=== PATIENT | female | born 1945 | race Caucasian/White ===

== ENCOUNTER 2024-11-04 08:44 | Outpatient (CLI) | payer MEDICARE, BC, SELFPAY ==
[2024-11-04 08:52] VITALS: BP 136/66; PULSE 55; RESP 20; TEMP 36.7; O2SAT 98
[2024-11-04 09:24] VITALS: PULSE 64; O2SAT 100
[2024-11-04] MEDS: methylPREDNISolone ACETATE 40 MG/ML VIAL IJ (09:29)
--- NOTE | 2024-11-04 09:33 | PDOC.PAIN_ITS ---
Date of service: 11/04/24 Time of Service: 09:33 US Guided Injections Type of Ultrasound Guided Injection: Right Trochanteric Bursa Injection Pre-Procedural Evaluation Tenderness to palpation over the right trochanteric bursa Referral Patient has been referred to the [facility] for Right Trochanteric Bursa Injection for a chief complaint of Pain over the right lateral hip Pre-Procedural Pain Score Pre-procedural pain score: 8/10 Reason for Exam Pain over the right lateral hip Patient Interview Patient was interviewed and medical record reviewed: Yes There were no contraindications to performing an US guided procedure. Risks,expected side effects, potential benefits were reviewed. The patient consent form was signed and witnessed. Standard time out procedure was performed. Patient Safety No skin issues over the proposed injection site Procedure Description No sedation given for procedure Patient was placed in the prone position and the following Pulse Ox applied. Pre-Procedure ultrasound scanning performed using a Linear 9 MHz probe Site Preparation Chloroprep Local Anesthesia of Lidocaine 2%. A 21 G 3.5 Pajunk ultrasound needle was placed under live US guidance using an in-plane approach to the target area. After visualization of the needle tip at the target area Bupivacaine 0.5% and Depo-Medrol 40mg per cc were used. Total of Injectate/Medication Note: 5 cc of Bupivacaine and 1 cc of Depomedrol Negative aspiration for blood. [place] were removed without difficulty. Ultrasound images were captured and stored. Patient Mental Status Patient was alert and awake during procedure Vital Signs Vital signs were stable throughout the procedure and recorded by nursing. Follow Up/Discharge Follow up plans and appointments were discussed with patient. Post procedure instruction was given as documented in nursing documentation. Discharge criteria met and patient discharged from [facility]: Yes Post Procedure Pain Post Procedure Pain: 5/10 Patient tolerated procedure well Procedure Outcome: Successful Non US Guided Injections Procedure Description Patient was placed in the prone position Post Procedure Pain Post Procedure Pain: 5/10 Coding Conscious Sedation used for procedure: No CPT Codes: Inj,Bursa/Tendon Major (not SI); Ischial Bursa - (2529000 ~G) Additional Codes: Date of Service (43492) Date of service: 11/04/24 Visualization of the needle tip - Ultrasound images captured/stored: Yes ([id number])
[2024-11-04] MEDS: Nerve Block Tray 1 EACH MC (09:34)
[2024-11-04] MEDS: Bupivacaine 0.5% Pres-Free 10 ML VIAL IJ (09:34)
== END 2024-11-04 08:45 | disposition home or self-care (01) ==
LOC: PC 08:45
PROVIDERS: PCP Family Medicine; Visit Provider Preventive Medicine Occupational Medicine
DX: M25.551 Pain in right hip (principal)
CPT/HCPCS: 20610; 20611; 76942; J0665; J1010

== ENCOUNTER 2024-12-04 14:01 | Emergency (ER) | payer MEDICARE, BC, SELFPAY ==
[2024-12-04 14:06] VITALS: BP 126/71; PULSE 58; RESP 16; TEMP 36.6; O2SAT 98
--- NOTE | 2024-12-04 14:08 | W.ED.GENAD ---
Discharge Plan Disposition Patient Disposition: Home Discharge Details Clinical Impression: Tick bite of left upper arm Primary Care Provider: Nanci Miller ED Provider: Jake Bowling [place] Meds and New Rx's Prescriptions: New cephalexin 500 mg capsule 500 mg PO QID 5 Days Qty: 20 0RF cetirizine 10 mg tablet 10 mg PO DAILY PRNQty: 7 0RF ondansetron 4 mg tablet,disintegrating 4 mg PO BID 5 Days Qty: 10 0RF Continued cholecalciferol (vitamin D3) 25 mcg (1,000 unit) capsule 25 mcg PO DAILY alendronate 70 mg tablet 70 mg PO QWEEK cranberry-vitamin C-flaxseed Capsule 1 cap PO 2XD pantoprazole 40 mg tablet,delayed release (DR/EC) 40 mg PO DAILY clopidogrel [Plavix] 75 mg tablet 75 mg PO DAILY atorvastatin 20 mg tablet 20 mg PO DAILY magnesium 250 mg tablet 250 mg PO DAILY celecoxib [Celebrex] 200 mg capsule 200 mg PO BID tramadol 50 mg tablet 50 mg PO BID PRN Discharge Instructions Additional Instructions: You are seen in the emergency department for your tick bite. As we discussed you have a local site reaction. Please take this allergy medication called cetirizine. At the moment there does not appear to be signs of a skin infection. As we discussed if you develop any increased pain swelling redness or any increased itching please begin taking these antibiotics as directed. Please return to the emergency department if you develop any worsening symptoms any foul-smelling drainage from any fevers or any bull's-eye rash. Otherwise please follow-up with primary care provider as needed next week. Discharge Data Discharge Date/Time-TO BE ENTERED AT DEPARTURE: 12/04/24 15:00 HPI General Date/Time Provider Initiated Documentation: 12/04/24 14:08. HPI Narrative: MDM This is an overall very well-appearing afebrile and not tachycardic 79-year-old female with left proximal posterior arm tick bite but no signs of erythema migrans nor cellulitis for which patient will be discharged with empiric trial of expectant outpatient management with prescription for [id number] cephalexin in the event the patient develops cellulitis. No fluctuance to suggest abscess. No signs of erythema migrans to suggest Lyme disease so no indication for doxycycline. No pain out of proportion to suggest necrotizing soft tissue infection. No palpable cords to suggest increased risk for DVT. No recent PICC lines nor IV drug use making my suspicion low risk for upper extremity DVT. Patient was concerned that she she could have a skin infection. The area does not appear cellulitic at the moment but I advised her that if she developed any increased itching any increased pain or swelling that she should take these antibiotics as directed. We also discussed that if she develops a red bull's-eye rash lower could not move her hand that she should return to the emergency department. Her left hand was warm well-perfused so I was not concerned for critical limb ischemia so I did not feel that she required a CT angiogram. We discussed using ice as needed under a dry towel for any discomfort. Patient was discharged with empiric trial of expectant outpatient management. HPI The patient presents for a tick bite. Three days ago, she removed a tick from the back of her left arm using a tick tool. The removal was challenging, but she managed to extract it completely. She reports no presence of a bull's-eye rash. She is uncertain about the duration of the tick's attachment as she had showered a few hours prior to its discovery. Today, she notes that the area appears more inflamed than before and is causing significant itching. She has been using alcohol wipes to alleviate the itching. Exam General: Well-appearing in no acute distress speaking in complete sentences. Head: Normocephalic, atraumatic. Eye: Extraocular eye movements intact. No conjunctival injection. No scleral icterus. Ear, nose, mouth, throat: Grossly normal inspection. Normal voice, handling secretions normally. Neck: Trachea midline. Cardiovascular: Well-perfused distal extremities. Respiratory: Nonlabored respiration. Gastrointestinal: Nondistended abdomen. Musculoskeletal: On the posterior aspect of the patient's left upper arm there is a mildly tender approximately 2 cm erythematous but not warm or fluctuant area with central bite consistent with history of recent tick bite. No palpable cords. Left hand warm well-perfused. No signs of erythema migrans. Skin: Normal for age and race, grossly normal temperature and turgor. No acute rash. Neurologic: Alert and appropriate, no apparent acute deficits. Psychiatric: Mood and manner are appropriate. Grooming and personal hygiene are appropriate. Related Data Home Medications ?Medication ?Instructions ?Recorded ?Confirmed alendronate 70 mg tablet 70 mg PO QWEEK 10/20/24 12/04/24 cholecalciferol (vitamin D3) 25 25 mcg PO DAILY 10/20/24 12/04/24 mcg (1,000 unit) capsule cranberry-vitamin C-flaxseed 1 cap PO 2XD 10/20/24 12/04/24 capsule atorvastatin 20 mg tablet 20 mg PO DAILY 10/26/24 12/04/24 clopidogrel 75 mg tablet (Plavix) 75 mg PO DAILY 10/26/24 12/04/24 magnesium 250 mg tablet 250 mg PO DAILY 10/26/24 12/04/24 pantoprazole 40 mg tablet,delayed 40 mg PO DAILY 10/26/24 12/04/24 release celecoxib 200 mg capsule (Celebrex) 200 mg PO BID 11/04/24 12/04/24 tramadol 50 mg tablet 50 mg PO BID PRN 11/04/24 12/04/24 cephalexin 500 mg capsule 500 mg PO QID 5 days #20 caps 12/04/24 cetirizine 10 mg tablet 10 mg PO DAILY PRN #7 tabs 12/04/24 ondansetron 4 mg disintegrating 4 mg PO BID 5 days #10 tabs 12/04/24 tablet Previous Rx's ?Medication ?Instructions ?Recorded cephalexin 500 mg capsule 500 mg PO QID 5 days #20 caps 12/04/24 cetirizine 10 mg tablet 10 mg PO DAILY PRN #7 tabs 12/04/24 ondansetron 4 mg disintegrating 4 mg PO BID 5 days #10 tabs 12/04/24 tablet Allergies Allergy/AdvReac Type Severity Reaction Status Date / Time menaquinone-7 (vitamin K2) Allergy Unknown Other (See Unverified 12/04/24 14:09 Comment) metronidazole Allergy Unknown Other (See Unverified 12/04/24 14:09 Comment) phytonadione (vitamin K1) Allergy Unknown Anaphylaxis Unverified 12/04/24 14:09 PFSH All Active Problems (Updated 12/04/24 @ 14:39 by Jake Bowling MD) Tick bite of left upper arm (Acute) Trochanteric bursitis, right hip (Acute) Medical History Stroke Lesion of right lower eyelid 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 Unspecified disorder of eyelid Hordeolum externum left lower eyelid Chalazion right upper eyelid Trichiasis without entropion right upper eyelid Other specified soft tissue disorders Pain in left lower leg Unilateral primary osteoarthritis, left knee Encounter to establish care Chronic venous insufficiency Pain in left knee Synovial cyst of popliteal space [Mullen], left knee Social History (Updated 11/04/24 @ 08:51 by Sofía Reddy RN) Smoking/Tobacco Use Status: Never Smoking risk assessment performed?: Yes Alcohol Intake: never Drug use: Never Substance use type: does not use Do you feel safe at home: Yes Do you feel safe in your relationship?: Yes
[2024-12-04 14:57] VITALS: BP 131/78; PULSE 52; RESP 18; O2SAT 100
== END 2024-12-04 15:00 | disposition home or self-care (01) ==
PROVIDERS: Emergency Provider Emergency Medicine; PCP Family Medicine
DX: S40.862A Insect bite (nonvenomous) of left upper arm, initial encounter (principal); W57.XXXA Bitten or stung by nonvenomous insect and other nonvenomous arthropods, initial encounter
CPT/HCPCS: 99283 ×2

== ENCOUNTER 2025-01-04 02:45 | Outpatient (CLI) | payer MEDICARE, BC, SELFPAY ==
--- NOTE | 2025-01-04 | DI.MRI_ITS ---
Exam(s) MR LOWER JOINT RT WO EXAM: MR LOWER JOINT RT WO CLINICAL HISTORY: TROCHANTERIC BURSITIS, R HIP M70.61 TECHNIQUE: Multiplanar multisequence MRI of right hip was performed COMPARISON: CT CT LOWER EXTREMITY RT WO from 09/30/2024 FINDINGS: Bones: There is no evidence of a fracture or avascular necrosis. There is no significant joint effusion. There is a tear of the anterior and superior labrum. No bone marrow edema is seen. The SI joints and symphysis pubis are well maintained. Musculotendinous structures: Musculotendinous structures demonstrate no abnormality. Intrapelvic structures demonstrate no significant abnormality. Soft tissues: There is diverticulosis of the colon. IMPRESSION: 1. Tear of the anterior superior right labrum. 2. There is no significant evidence to suggest trochanteric bursitis. 3. No evidence of an occult fracture or avascular necrosis. DATA REPOSITORY:
== END 2025-01-04 03:05 ==
LOC: DI 02:45
PROVIDERS: PCP Family Medicine; Visit Provider Nurse Practitioner Family
DX: S43.431A Superior glenoid labrum lesion of right shoulder, initial encounter (principal); X58.XXXA Exposure to other specified factors, initial encounter
CPT/HCPCS: 73721

== ENCOUNTER 2025-01-26 15:55 | Outpatient (CLI) | payer MEDICARE, BC, SELFPAY ==
--- NOTE | 2025-01-26 14:15 | DI.RAD_ITS ---
Exam(s) XR HIP RT COMPLETE AP PELVIS EXAM: XR HIP RT COMPLETE AP PELVIS CLINICAL HISTORY: RIGHT HIP PAIN. TECHNIQUE: 2D digital imaging was performed. COMPARISON: No exams were available for comparison FINDINGS: Two views No evidence of pelvic nor hip fracture. Sacroiliac joints appear unremarkable. Bone density normal. No osseous lesions. There is mild narrowing of the hip joint spaces which appears symmetrical. No osteophytes evident. No osseous lesions. IMPRESSION: Mild joint space narrowing in both hips. DATA REPOSITORY: RADIATION DOSE DELIVERED:
== END 2025-01-26 15:56 | disposition home or self-care (01) ==
LOC: DIORS 15:55
PROVIDERS: PCP Family Medicine; Referring Provider Family Medicine; Visit Provider Student in an Organized Health Care Education/Training Program
DX: M70.61 Trochanteric bursitis, right hip (principal); S73.191A Other sprain of right hip, initial encounter; X58.XXXA Exposure to other specified factors, initial encounter
CPT/HCPCS: 99214; 73502

== ENCOUNTER 2025-02-08 08:17 | Outpatient (CLI) | payer MEDICARE, BC, SELFPAY ==
--- NOTE | 2025-02-08 05:45 | DI.RAD_ITS ---
Exam(s) RF JOINT INJ. FLUORO GUID RAD EXAM: RF JOINT INJ. FLUORO GUID RAD CLINICAL HISTORY: R HIP PAIN,fluoro guided injection,trochanteric bursitis rt hip, m70.61. TECHNIQUE: 2D and realtime digital imaging was performed. CONTRAST MATERIAL: Oral barium Oral water soluble contrast was administered. COMPARISON: No exams were available for comparison FINDINGS: This fluoroscopic guided right hip steroid injection was performed at the request of the referring orthopedic surgeon. As this patient has had prior trochanteric bursa injection in the ipsilateral hip, prior to starting this procedure we verified with the physician's office that indeed an actual intra- articular injection was desired.. The patient also showed me (on her cellphone) report of a recent hip MRI stating the presence of a labral tear. The patient was consented prior to this procedure. The patient was placed in the supine position on the fluoroscopy table. Using sterile technique and adequate stent-subcutaneous anesthesia, fluoroscopic guidance was used to advance a 22 gauge spinal needle into the right hip joint using an anterior approach being careful to avoid the common femoral artery. Intra-articular position was confirmed with 1.5 cc Omnipaque 300. Thereafter a sterile solution of 3 cc of bupivacaine 0.25 percent and 40 milligram Depo- Medrol was injected into the intra-articular compartment. The indwelling needle was then removed. A Band-Aid was applied. The patient tolerated this procedure well and there were no intraprocedural complications. IMPRESSION: Successful fluoroscopic guided right hip joint steroid injection. RADIATION DOSE DELIVERED: Ka,r=4.33mGy
[2025-02-08] MEDS: Lidocaine 1% Pres-Free 30 ML VIAL 15 ML IJ (10:15)
[2025-02-08] MEDS: methylPREDNISolone ACETATE 40 MG/ML VIAL IM (10:16)
[2025-02-08] MEDS: Omnipaque 300 MG/ML 10 ML BTL 5 ML IJ (10:17)
[2025-02-08] MEDS: Bupivacaine 0.25% Pres-Free 10 ML VIAL 5 ML IJ (10:18)
== END 2025-02-08 08:37 ==
LOC: DI 08:18
PROVIDERS: PCP Family Medicine; Visit Provider Student in an Organized Health Care Education/Training Program
DX: M70.61 Trochanteric bursitis, right hip (principal)
CPT/HCPCS: 20610; 77002; J0665; J1010

== ENCOUNTER → 2025-05-30 10:53 | Outpatient (BNVA) | payer MEDICARE, BC, SELFPAY | PROVIDERS: PCP Family Medicine; Referring Provider Family Medicine; Visit Provider Student in an Organized Health Care Education/Training Program | DX: M70.61 Trochanteric bursitis, right hip (principal); S73.191A Other sprain of right hip, initial encounter; X58.XXXA Exposure to other specified factors, initial encounter | CPT/HCPCS: 99215; 20611; J1010 ==